=== PATIENT | male | born 2000 | race American Indian/Alaskan Native ===

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

== ENCOUNTER → 2020-04-09 12:04 | Outpatient (CLI) | payer MEDICAID, OTHER, SELFPAY ==
--- NOTE | 2020-04-09 | DI.RAD.S_ITS ---
PROCEDURE: XR FOOT RT MIN 3V INDICATIONS: FOOT PAIN, RT TECHNIQUE: 3 views of the foot were acquired. COMPARISON: None. FINDINGS: Bones: No fractures or dislocations. No suspicious bony lesions. Soft tissues: No tibiotalar joint effusion. Achilles tendon appears normal. IMPRESSION: Normal for age, source of current foot pain symptoms is not seen. Dictated by: Sushil Gomes M.D. on 04/09/2020 at 13:21 Approved by: Sushil Gomes M.D. on 04/09/2020 at 13:22
== END ==
PROVIDERS: Family Provider Family Medicine; PCP Physician Assistant; Referring Provider Physician Assistant; Visit Provider Physician Assistant
DX: M79.671 Pain in right foot (principal)
CPT/HCPCS: 73630